=== PATIENT | female | born 1955 | race Caucasian/White ===

== ENCOUNTER → 2016-11-08 | Outpatient (CLI) | payer OTHER | LOC: RAD 16:35 | PROVIDERS: ATTEND Family Medicine | DX: E04.9 Nontoxic goiter, unspecified (principal) | CPT/HCPCS: 76536 ==

== ENCOUNTER 2017-01-16 11:32 | Emergency (ER) | payer OTHER ==
--- NOTE | 2017-01-16 12:14 | ER Document Report ---
HPI - HPI Patient complains to provider of: swelling left jaw/neck Onset: Other - few days Onset/Duration: Gradual Quality of pain: Achy Pain Level: 2 Context: 61 yo female had thyroid biopsy over week ago, 4 days later developed swelling left neck under the jaw and pain that radiates into left ear. No fever. Associated Symptoms: None Exacerbated by: Denies Relieved by: Denies Similar symptoms previously: No Recently seen / treated by doctor: No - ROS ROS below otherwise negative: Yes Systems Reviewed and Negative: Yes All other systems reviewed and negative - REPRODUCTIVE Reproductive: DENIES: : - DERM Skin Color: Normal Past Medical History - General Information source: Patient - Social History Smoking Status: Unknown if Ever Smoked Frequency of alcohol use: None Drug Abuse: None Lives with: Family Family History: Reviewed & Not Pertinent Patient has suicidal ideation: No Patient has homicidal ideation: No - Past Medical History Cardiac Medical History: Reports: Hx Hypercholesterolemia Neurological Medical History: Reports: Hx Migraine Renal/ Medical History: Denies: Hx Peritoneal Dialysis GI Medical History: Reports: Hx Gastroesophageal Reflux Disease, Hx Irritable Bowel Psychiatric Medical History: Reports: Hx Anxiety, Hx Depression Past Surgical History: Reports: Hx Appendectomy, Hx Section, Hx Hysterectomy, Hx Orthopedic Surgery - foot, Hx Tonsillectomy - Immunizations Immunizations up to date: Yes Hx Diphtheria, Pertussis, Tetanus Vaccination: Yes Vertical Provider Document - CONSTITUTIONAL Agree With Documented VS: Yes Exam Limitations: No Limitations General Appearance: No Apparent Distress - INFECTION CONTROL TRAVEL OUTSIDE OF THE [place] IN LAST 30 DAYS: No - HEENT HEENT: Atraumatic, Normocephalic. negative: Tympanic Membrane Red, Tympanic Membrane Bulging Notes: eaternal ear normal, canal normal, non tender mastoid. mild tender lymph nodes under left angle of the proximal jaw. Not red or warm. - NECK Neck: Supple, Lymphadenopathy-Left - RESPIRATORY Respiratory: Breath Sounds Normal, No Respiratory Distress O2 Sat by Pulse Oximetry: 95 - CARDIOVASCULAR Cardiovascular: Regular Rate, Regular Rhythm - GI/ABDOMEN Gastrointestinal: Abdomen Soft, Abdomen Non-Tender - MUSCULOSKELETAL/EXTREMETIES Musculoskeletal/Extremeties: PHONG RIVERA - NEURO Level of Consciousness: Awake, Alert - DERM Integumentary: Warm, Dry, No Rash Course - Re-evaluation Re-evalutation: 01/16/17 12:[address] hosek, augmentin tx. - Vital Signs Vital signs: Temp Pulse Resp BP Pulse Ox 98.2 F 76 18 123/75 95 01/16/17 11:45 01/16/17 11:45 01/16/17 11:45 01/16/17 11:45 01/16/17 11:45 Discharge - Discharge Clinical Impression: Lymphadenitis, acute Condition: Stable Disposition: HOME, SELF-CARE Instructions: Augmentin ([facility]), Lymphadenopathy ([facility]), Cervical Lymphadenitis ( [facility]) Additional Instructions: warm compress to er if worse take the augmentin follow up with your MD Please complete the patient satisfaction survey if you get one, and return it.. If you do not receive a survey, then you can go to the [facility] website, [email or web address] and place your comments about your very good care. Thank you very much. It was a pleasure being your medical provider today. Prescriptions: Amoxicillin/Potassium Clav [Augmentin 875-125 Tablet] 1 each PO BID #14 tablet Referrals: KEVIN REGALADO MD [Primary Care Provider] - Follow up as needed
[2017-01-16 12:29] VITALS: BP 114/68
== END 2017-01-16 12:27 | disposition home or self-care (01) ==
LOC: ER 11:32
DX: L04.0 Acute lymphadenitis of face, head and neck (principal); Z98.890 Other specified postprocedural states
CPT/HCPCS: 99282

== ENCOUNTER 2018-09-21 17:30 | Emergency (ER) | payer SELFPAY ==
[2018-09-21] MEDS ORDERED: LORAZEPAM INJ 2 MG/1 ML VIAL IM ONE (17:40)
[2018-09-21] MEDS ORDERED: LORAZEPAM 1 MG TABLET ONE (17:41)
--- NOTE | 2018-09-21 17:42 | ER Document Report ---
ED Medical Screen (RME) - General Chief Complaint: S/S of Possible Stroke Stated Complaint: STROKE ALERT Time Seen by Provider: 09/21/18 17:39 Notes: 63 years old female with a history of anxiety and depression taking Prozac, had a stressful conversation/event with her brother and mother started having feeling of nervousness and shakiness, on the way to the ER, could not remember what happened the past. Otherwise she is pacing up and down fidgeting her arms and hand. Able to answer questions. There were no focal signs. Or symptoms. Acute anxiety attack given Ativan IM TRAVEL OUTSIDE OF THE [place] IN LAST 30 DAYS: No - Related Data Allergies/Adverse Reactions: Sulfa (Sulfonamide Antibiotics) Allergy (Verified 09/21/18 17:34) Past Medical History - Past Medical History Cardiac Medical History: Reports: Hx Hypercholesterolemia Neurological Medical History: Reports: Hx Migraine Renal/ Medical History: Denies: Hx Peritoneal Dialysis GI Medical History: Reports: Hx Gastroesophageal Reflux Disease, Hx Irritable Bowel Psychiatric Medical History: Reports: Hx Anxiety, Hx Depression Past Surgical History: Reports: Hx Appendectomy, Hx Section, Hx Hysterectomy, Hx Orthopedic Surgery - foot, Hx Tonsillectomy - Immunizations Immunizations up to date: Yes Hx Diphtheria, Pertussis, Tetanus Vaccination: Yes Doctor's Discharge - Discharge Referrals: KEVIN REGALADO MD [Primary Care Provider] - Follow up as needed
--- NOTE | 2018-09-21 18:24 | RADIOLOGY REPORT (SQ) ---
EXAM DESCRIPTION: CHEST SINGLE VIEW COMPLETED DATE/TIME: 09/21/2018 6:13 pm REASON FOR STUDY: stroke alert COMPARISON: 10/12/2014 EXAM PARAMETERS: NUMBER OF VIEWS: One view. TECHNIQUE: Single frontal radiographic view of the chest acquired. RADIATION DOSE: NA LIMITATIONS: None. FINDINGS: LUNGS AND PLEURA: No opacities, masses or pneumothorax. No pleural effusion. MEDIASTINUM AND HILAR STRUCTURES: No masses. Contour normal. HEART AND VASCULAR STRUCTURES: Heart normal in size. Normal vasculature. BONES: No acute findings. HARDWARE: None in the chest. OTHER: No other significant finding. IMPRESSION: NO ACUTE RADIOGRAPHIC FINDING IN THE CHEST. TECHNICAL DOCUMENTATION: JOB ID: [id number] [employer]- All Rights Reserved Reading location - IP/workstation name: [email or web address]
--- NOTE | 2018-09-21 18:29 | RADIOLOGY REPORT (SQ) ---
EXAM DESCRIPTION: CT HEAD WITHOUT COMPLETED DATE/TIME: 09/21/2018 6:15 pm REASON FOR STUDY: stroke alert COMPARISON: None. TECHNIQUE: Axial images acquired through the brain without intravenous contrast. Images reviewed wi th bone, brain and subdural windows. Additional sagittal and coronal reconstructions were generated. Images stored on PACS. All CT scanners at this facility use dose modulation, iterative reconstruction, and/or weight based d osing when appropriate to reduce radiation dose to as low as reasonably achievable (ALARA). [facility]: Dose Right [facility]: CareDose [facility]: Dose Right [facility]: Teradose 4D [facility]: [employer] RADIATION DOSE: CT Rad equipment meets quality standard of care and radiation dose reduction techniq ues were employed. CTDIvol: 53.2 mGy. DLP: 991 mGy-cm. mGy. LIMITATIONS: None. FINDINGS: VENTRICLES: Normal size and contour. CEREBRUM: No masses. No hemorrhage. No midline shift. No evidence for acute infarction. Normal gra y/white matter differentiation. No areas of low density in the white matter. CEREBELLUM: No masses. No hemorrhage. No alteration of density. No evidence for acute infarction. EXTRAAXIAL SPACES: No fluid collections. No masses. ORBITS AND GLOBE: No intra- or extraconal masses. Normal contour of globe without masses. CALVARIUM: No fracture. PARANASAL SINUSES: No fluid or mucosal thickening. SOFT TISSUES: No mass or hematoma. OTHER: No other significant finding. IMPRESSION: NORMAL BRAIN CT WITHOUT CONTRAST. EVIDENCE OF ACUTE STROKE: NO. COMMENT: Quality ID # [id number]: Final reports with documentation of one or more dose reduction techniques (e.g., Automated exposure control, adjustment of the mA and/or kV according to patient size, use of iterative reconstruction technique) TECHNICAL DOCUMENTATION: JOB ID: [id number] [employer]- All Rights Reserved Reading location - IP/workstation name: [email or web address]
[2018-09-21 18:47] LABS: ABSOLUTE EOSINOPHILS # (AUTO) 0.1 10^3/uL (0.0-0.6); ABSOLUTE LYMPHOCYTES (AUTO) 1.6 10^3/uL (0.5-4.7); ABSOLUTE MONOCYTES (AUTO) 0.5 10^3/uL (0.1-1.4); ABSOLUTE NEUT (AUTO) 4.5 10^3/uL (1.7-8.2); BASOPHILS % (AUTO) 0.4 % (0-2); EOSINOPHILS % (AUTO) 1.1 % (0-6); HEMOGLOBIN 14.8 g/dL (12.0-15.5); LYMPHOCYTES % (AUTO) 23.8 % (13-45); MEAN CORPUSCULAR HGB CONC 34.4 g/dL (32.0-36.0); MEAN CORPUSCULAR VOLUME 87 fl (80-97); PLATELET COUNT 253 10^3/uL (150-450); RED BLOOD COUNT 4.93 10^6/uL (3.72-5.28); RED CELL DISTRIBUTION WIDTH 13.2 % (11.5-14.0); SEGMENTED NEUTROPHILS % (AUTO) 67.7 % (42-78); TOTAL CELLS COUNTED % (AUTO) 100 %; WHITE BLOOD COUNT 6.6 10^3/uL (4.0-10.5)
[2018-09-21 18:57] LABS: PROTHROMBIN TIME 12.6 SEC (11.4-15.4)
[2018-09-21 19:10] LABS: ALANINE AMINOTRANSFERASE 35 U/L (9-52); ALBUMIN 4.7 g/dL (3.5-5.0); ALKALINE PHOSPHATASE 85 U/L (38-126); ANION GAP 8 (5-19); ASPARTATE AMINO TRANSFERASE 38 U/L (14-36); BILIRUBIN,DIRECT 0.2 mg/dL (0.0-0.4); BILIRUBIN,TOTAL 0.3 mg/dL (0.2-1.3); BLOOD UREA NITROGEN 22 mg/dL (7-20); CALCIUM 9.6 mg/dL (8.4-10.2); CARBON DIOXIDE 30 mmol/L (22-30); CHLORIDE 101 mmol/L (98-107); GLUCOSE 104 mg/dL (75-110); POTASSIUM 4.2 mmol/L (3.6-5.0); SODIUM 139.4 mmol/L (137-145); TOTAL PROTEIN 7.3 g/dL (6.3-8.2)
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
[2018-09-21 20:07] VITALS: BP 174/91
== END 2018-09-21 20:17 | disposition home or self-care (01) ==
LOC: ER 17:30
DX: F44.0 Dissociative amnesia (principal); F43.9 Reaction to severe stress, unspecified; F41.0 Panic disorder [episodic paroxysmal anxiety]; E78.00 Pure hypercholesterolemia, unspecified; Z88.2 Allergy status to sulfonamides; Z90.710 Acquired absence of both cervix and uterus
CPT/HCPCS: 36415; 70450; 71045; 80053; 85025; 85610; 99284

== ENCOUNTER 2019-01-11 06:56 | Emergency (ER) | payer OTHER ==
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
[2019-01-11 08:56] VITALS: BP 136/84
== END 2019-01-11 08:56 | disposition home or self-care (01) ==
LOC: ER 06:56
DX: S29.012A Strain of muscle and tendon of back wall of thorax, initial encounter (principal); R51 Headache; R42 Dizziness and giddiness; R20.2 Paresthesia of skin; M62.830 Muscle spasm of back; V54.5XXA Driver of pick-up truck or van injured in collision with heavy transport vehicle or bus in traffic accident, initial encounter; Y93.89 Activity, other specified; Z88.2 Allergy status to sulfonamides
CPT/HCPCS: 70450; 72125; 99283

== ENCOUNTER 2019-04-25 05:21 | Emergency (ER) | payer OTHER ==
[2019-04-25] MEDS ORDERED: HYDROCODONE/ACETAMINOPHEN 5-325 MG (6 TAB/ER DISP) PO PRN (07:09)
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
[2019-04-25 07:29] VITALS: BP 129/83
== END 2019-04-25 07:29 | disposition home or self-care (01) ==
LOC: ER 05:21
DX: S80.11XA Contusion of right lower leg, initial encounter (principal); S80.812A Abrasion, left lower leg, initial encounter; V89.2XXA Person injured in unspecified motor-vehicle accident, traffic, initial encounter; Z88.2 Allergy status to sulfonamides; E78.00 Pure hypercholesterolemia, unspecified; Z90.710 Acquired absence of both cervix and uterus
CPT/HCPCS: 99283

== ENCOUNTER → 2020-06-30 | Day surgery (SDC) | payer MEDICARE, MEDICAID ==
[~2020-06-30] MED LIST: PROPOFOL INJ 200 MG/20 ML VIAL IV ONE
--- NOTE | 2020-06-30 08:31 | Operative Report ---
Operative Report DATE OF SURGERY: 06/30/20 Operative Report: The risk, benefits and alternatives of the procedure including the risk of bleeding, perforation requiring surgery have been explained to the patient in detail and informed consent has been obtained. Patient is placed in left, lateral decubital position. Timeout was called. Propofol medication is administered. Rectal examination is done which did not reveal any masses, tears or fissures. An Olympus videoscope was introduced into the patient's rectum. Scope was then carefully advanced all the way to the cecum. Cecum was identified by the usual anatomical landmarks including the ileocecal valve as well as the appendiceal office. Photodocumentation is obtained. Scope was then sequentially pulled back via the various segments of the colon including the ascending colon, pancreatic, transverse colon, splenic flexure, descending colon and finally into the rectosigmoid portions of the colon. Retroflexion maneuver is performed. PREOPERATIVE DIAGNOSIS: Colorectal cancer screening POSTOPERATIVE DIAGNOSIS: Normal screening colonoscopy OPERATION: Diagnostic colonoscopy SURGEON: MYRANDA OREILLY ANESTHESIA: LMAC TISSUE REMOVED OR ALTERED: None. COMPLICATIONS: None. ESTIMATED BLOOD LOSS: As noted above. INTRAOPERATIVE FINDINGS: As noted above. PROCEDURE: Patient tolerated the procedure well. No immediate postprocedure complications are noted. Patient is discharged in good condition. Discharge date 06/30/2020. Discharge diet: Regular. Discharge activity: Regular. 2 to 3-week follow-up to discuss findings. Patient is instructed to call the office or proceed to the emergency room should there be any further proximal questions. Richard surveillance colonoscopy.
[2020-06-30 08:54] VITALS: BP 115/80
--- NOTE | 2020-07-02 12:11 | Progress Note ---
Provider Note Provider Note: with respect to previous colonoscopy, it should read a 10 year surveillance colonoscopy.
== END ==
LOC: END 06:59
PROVIDERS: ATTEND Internal Medicine Gastroenterology
DX: K59.00 Constipation, unspecified (principal); R19.7 Diarrhea, unspecified; R10.84 Generalized abdominal pain; R14.0 Abdominal distension (gaseous); R11.0 Nausea; Z03.818 Encounter for observation for suspected exposure to other biological agents ruled out; F17.200 Nicotine dependence, unspecified, uncomplicated; Z83.71 Family history of colonic polyps
CPT/HCPCS: 45378; 00812; U0003; J2704; C9803; 812; 87635